=== PATIENT | male | born 1975 | race Caucasian/White ===

== ENCOUNTER 2017-06-02 19:22 | Emergency (ER) | payer SELFPAY ==
--- NOTE | 2017-06-02 21:11 | ED PDOC ---
HPI: General Adult <[place] - Last Filed: 06/03/17 01:49> <Adriana Roper - Last Filed: 06/03/17 06:37> Time Seen by Provider: 06/02/17 20:40 Chief Complaint (Nursing): Flu-like Symptoms Additional Complaint(s): 41 yo male pmhx uncontrolled HTN ( non-compliant) and hyperlipidemia presents to ED w/ complaints of non productive cough, subjective fever and generalized fatigue for 2 weeks. Pt reports his chest wall and back hurts with coughing. Reports 3-4 loose BM/day for last few days. Denies nausea, vomiting, dyspnea, headache, blurry vision or focal weakness. Pt's daughters have influenza like illnesses. PMD: [facility] ( Last vist 09/22/15) (Sultan Rajendra) Supervising Attending Note - Supervising Attending Note The Documented history was done by the: Physician [id number]/[id number] Tank Driver, Attending Physician The documented physical exam was done by the: Physician [id number]/[id number] Tank Driver, Attending Physician The documented procedures were done by the: Physician [id number]/[id number] Tank Driver, Attending Physician - Attestation: I have personally seen and examined this patient.: Yes I have fully participated in the care of the patient.: Yes I have reviewed all pertinent clinical information, including history, physical exam and plan: Yes <Adriana Roper - Last Filed: 06/03/17 06:37> Past Medical History - Medical History PMH: HTN (diagnosed 2 days ago in [facility]), Hyperlipidemia Denies: HIV, Chronic Kidney Disease - Surgical History Surgical History: Cholecystectomy - Family History Family History: States: CAD Other Family History: Mother: DMII, HTN. Father: HTN - Living Arrangements Living Arrangements: With Family - Social History Current smoker - smoking cessation education provided: Yes (3-4 cigarettes/day for many years) Alcohol: Social (on weekends) Drugs: Cannabis (every day, >10x/day) <Sultan Rajendra - Last Filed: 06/03/17 01:49> Reviewed: Historical Data, Nursing Documentation, Vital Signs <Adriana Roper - Last Filed: 06/03/17 06:37> Vital Signs: Last Vital Signs Temp 98 F 06/02/17 23:34 Pulse 83 06/03/17 00:27 Resp 18 06/02/17 23:34 BP 167/106 H 06/03/17 00:27 Pulse Ox 100 06/03/17 01:56 - Home Medications Home Medications: Ambulatory Orders Medication Instructions Recorded hydroCHLOROthiazide [Hydrodiuril] 25 mg PO DAILY #0 tab 09/03/15 traMADol [Ultram] 50 mg PO TID PRN #30 tab 09/03/15 Dicyclomine [Bentyl] 20 mg PO Q12 PRN #20 tab 11/13/15 Ondansetron ODT [Zofran ODT] 4 mg PO Q6 PRN #16 odt 11/13/15 Metoprolol Tartrate [Lopressor] 25 mg PO Q12 #60 tab 06/03/17 - Allergies Allergies/Adverse Reactions: Allergies Allergy/AdvReac Type Severity Reaction Status Date / Time No Known Allergies Allergy Verified 06/02/17 19:58 Review of Systems Constitutional: Negative for: Fever, Chills ENT: Negative for: Ear Pain Cardiovascular: Negative for: Palpitations Respiratory: Positive for: Cough. Negative for: Shortness of Breath Gastrointestinal: Negative for: Vomiting, Abdominal Pain Genitourinary Male: Negative for: Dysuria Neurological: Negative for: Headache, Dizziness <Sultan Rajendra - Last Filed: 06/03/17 01:49> ROS Statement: Except As Marked, All Systems Reviewed And Found Negative <Adriana Roper A - Last Filed: 06/03/17 06:37> Physical Exam - Physical Exam Appears: Positive for: Non-toxic, No Acute Distress Head Exam: Positive for: ATRAUMATIC, NORMAL INSPECTION Neck: Positive for: Normal Cardiovascular/Chest: Positive for: Tachycardia. Negative for: Murmur Respiratory: Positive for: Normal Breath Sounds. Negative for: Crackles, Wheezing Gastrointestinal/Abdominal: Positive for: Normal Exam, Bowel Sounds, Soft. Negative for: Tenderness, Guarding, Rebound Extremity: Positive for: Normal ROM Neurologic/Psych: Positive for: Alert, Oriented <Sultan Rajendra - Last Filed: 06/03/17 01:49> - Reviewed Nursing Documentation Reviewed: Yes Vital Signs Reviewed: Yes <Adriana Roper - Last Filed: 06/03/17 06:37> - Laboratory Results Result Diagrams: 06/02/17 22:16 06/02/17 22:16 - ECG O2 Sat by Pulse Oximetry: 100 - Progress Condition: Re-examined, Improved <Sultan Rajendra - Last Filed: 06/03/17 01:49> - Laboratory Results Result Diagrams: 06/02/17 22:16 06/02/17 22:16 <Adriana Roper - Last Filed: 06/03/17 06:37> - Progress ED Course And Treament: Assessment: 41 yo male hx uncontrolled HTN presents with influenza like illness and elevated BP. Plan: EKG CBC BMP RAPID INFLUENZA TEST CXR LOPRESSOR 25 mg PO IV FLUIDS NS 0.9% AT 125 CC/HR Case d/w ED attending Dr. Cruz re-assessment at 1:00 on 06/03/17 Labs reviewed: CBC, BMP, INFLUENTA WNL EKG: No acute changes seen CXR: no acute cardiopulmonary disease appreciated. Pt reports he is feeling better. Pt was educated about importance of taking HTN medication. Pt states he will take medications from now on. Advised to f/u with PMD in 2-3 days. ED precaution discussed. Pt is medically stable to discharge home with HTN medication. Pt is agreement with the plan. Case d/w ED attending Dr. Roper (Sultan Rajendra) Disposition <Sultan Rajendra - Last Filed: 06/03/17 01:49> - Patient ED Disposition Is Patient to be Admitted: No Doctor Will See Patient In The: Office Counseled Patient/Family Regarding: Studies Performed, Diagnosis, Need For Followup - Disposition Disposition: Routine/Home Disposition Time: 01:09 <Adriana Roper - Last Filed: 06/03/17 06:37> - Clinical Impression Clinical Impression: Influenza-like symptoms, Hypertension - Disposition Referrals: [facility] [Outside] Condition: GOOD Additional Instructions: Follow up with your PCP in 2-3 days. Take your medications as instructed. Prescriptions: Metoprolol Tartrate [Lopressor] 25 mg PO Q12 #60 tab Instructions: Hypertension (ED)
[2017-06-02] MEDS ORDERED: Sodium Chloride 0.9% 1,000 ML IV SCH (21:15)
[2017-06-02 22:26] LABS: BASO % 0.4 % (0.0-2.0); EOS # 0.1 K/uL (0.0-0.7); EOS % 0.6 % (0.0-4.0); HEMOGLOBIN 12.2 g/dL (12.0-18.0); LYMPH # 3.5 K/uL (1.0-4.3); LYMPH % 33.9 % (20.0-40.0); MEAN CELL VOLUME 68.8 fl (80.0-94.0); MEAN CORPUSCULAR HEMOGLOBIN 22.2 pg (27.0-31.0); MEAN CORPUSCULAR HGB CONC 32.2 g/dL (33.0-37.0); MEAN PLATELET VOLUME 9.5 fl (7.2-11.7); MONO # 0.8 K/uL (0.0-0.8); MONO % 7.6 % (0.0-10.0); NEUT # 5.9 K/uL (1.8-7.0); NEUT % 57.5 % (50.0-75.0); NRBC % 0.1 % (0.0-0.0); RBC 5.49 Mil/uL (4.40-5.90); RED CELL DISTRIBUTION WIDTH 17.6 % (11.5-14.5); WHITE BLOOD COUNT 10.3 K/uL (4.8-10.8)
[2017-06-02 22:34] LABS: BLOOD UREA NITROGEN 13 mg/dl (9-20); CALCIUM 9.3 mg/dL (8.4-10.2); GFR AFRICAN-AMERICAN > 60; GFR NON-AFRICAN AMERICAN > 60
[2017-06-02 22:36] VITALS: RESP 18
[2017-06-02 23:35] VITALS: TEMP 98
[2017-06-03 00:27] VITALS: BP 167/106
[2017-06-03 00:28] VITALS: PULSE 83
[2017-06-03 01:56] VITALS: O2SAT 100
--- NOTE | 2017-06-03 09:00 | RAD ---
HISTORY: cough x 2 weeks, subjective fever COMPARISON: Chest radiograph dated 08/16/2015. TECHNIQUE: Chest PA and lateral FINDINGS: LUNGS: No active pulmonary disease. PLEURA: No significant pleural effusion identified. No pneumothorax apparent. CARDIOVASCULAR: Normal. OSSEOUS STRUCTURES: Unchanged. VISUALIZED UPPER ABDOMEN: Normal. OTHER FINDINGS: None. IMPRESSION: No active disease.
== END 2017-06-03 01:20 | disposition home or self-care (01) ==
LOC: H.ER 19:22
DX: R50.9 Fever, unspecified (principal); R05 Cough; R53.83 Other fatigue; I10 Essential (primary) hypertension; E78.5 Hyperlipidemia, unspecified; Z91.19 Patient's noncompliance with other medical treatment and regimen; F17.210 Nicotine dependence, cigarettes, uncomplicated
CPT/HCPCS: 71046; 80048; 85025; 87804; 99283; J7040